=== PATIENT | male | born 1980 | race African-American/Black ===

== ENCOUNTER 2020-06-23 19:56 | Emergency (ER) | payer SELFPAY ==
[~2020-06-23] VITALS: Ht 172.7 cm; Wt 70.0 kg
[2020-06-23 20:00] VITALS: BP 117/83
[2020-06-23] MEDS ORDERED: TETANUS AND DIPHTHERIA TOX/PF 0.5 ML VIAL. VAX IM ONE (20:15)
--- NOTE | 2020-06-23 20:26 | PHYS DOC ---
Past History Past Medical History: Other (DANIS ESTRADA APRN) Past Surgical History: Other (DANIS ESTRADA APRN) Alcohol Use: Heavy Drug Use: Marijuana, Other (DANIS ESTRADA APRN) Adult General Chief Complaint Chief Complaint: LACERATION/AVULSION HPI HPI Patient is a 40-year-old male patient who presents to the ED today with right hand laceration, patient reports being cut by a sheet metal at work. Patient is right-handed. (DANIS ESTRADA APRN) Review of Systems Review of Systems Constitutional: Denies fever or chills [] Musculoskeletal: Denies back pain or joint pain [] Integument: reports right hand laceration Neurologic: Denies headache, focal weakness or sensory changes [] All other systems were reviewed and found to be within normal limits, except as documented in this note. (DANIS ESTRADA APRN) Current Medications Current Medications Current Medications Medications (Trade) Dose Ordered Sig/Tramaine Start Time Stop Time Status Last Admin Dose Admin Tetanus/ Diphtheria Toxoids Adsorbed (Tenivac Vial) 0.5 ml ONCE ONCE 06/23/20 20:15 06/23/20 20:16 DC (DANIS ESTRADA APRN) Allergies Allergies Allergies Coded Allergies Type Severity Reaction Last Updated Verified No Known Drug Allergies 04/02/14 No (DANIS ESTRADA APRN) Physical Exam Physical Exam Constitutional: Well developed, well nourished, no acute distress, non-toxic ap pearance. [] Skin: Warm, dry, right index finger lateral aspect of the knuckle with a superficial laceration approximately 2 cm long with no obvious tendon involvement. Full range of motion to the right fingers including flexion and e xtension at all the joints. Adequate radial, medial, ulnar sensation to the right hand. +2 right radial pulse. Cap refill less than 2 seconds the right fingers. Back: No tenderness, no CVA tenderness. [] Extremities: No tenderness, no cyanosis, no clubbing, ROM intact, no edema. [] Neurologic: Alert and oriented X 3, normal motor function, normal sensory function, no focal deficits noted. [] Psychologic: Affect normal, judgement normal, mood normal. [] (DANIS ESTRADA APRN) EKG EKG [] (DANIS ESTRADA APRN) Radiology/Procedures Radiology/Procedures [] (DANIS ESTRADA APRN) Heart Score Risk Factors: Risk Factors: DM, Current or recent (<one month) smoker, HTN, HLP, family history of CAD, obesity. Risk Scores: Risk Factors: DM, Current or recent (<one month) smoker, HTN, HLP, family history of CAD, obesity. (DANIS ESTRADA APRN) Course & Med Decision Making Course & Med Decision Making Pertinent Labs and Imaging studies reviewed. (See chart for details) This is a 40-year-old male patient with right hand laceration that was closed with Dermabond by me. Tetanus was given in the ED. Discharged home. Wound care instructions or return precautions provided. (DANIS ESTRADA APRN) Dragon Disclaimer Dragon Disclaimer This electronic medical record was generated, in whole or in part, using a voice recognition dictation system. (DANIS ESTRADA APRN) Departure Departure: Impression: Primary Impression: Laceration of right hand Additional Impression: Vaccine for tetanus toxoid Disposition: 01 DC HOME SELF CARE/HOMELESS Condition: STABLE Referrals: PCP,NO (PCP) Follow-up with your doctor as needed Patient Instructions: Laceration Care, Adult, [id number] Additional Instructions: You were evaluated in the emergency room for right hand laceration that was closed with Dermabond. Keep the area clean and dry. The Steri-Strips over the laceration site will fall off on their own. You received tetanus vaccine in the emergency room. Follow-up with your doctor in 1 to 2 weeks as needed. Monitor the area for signs of infection including but not limited to increased redness, warmth, yellow drainage from the area and return to the ED today. Dragon Disclaimer This chart was dictated in whole or in part using Voice Recognition software in a busy, high-work load, and often noisy Emergency Department environment. It may contain unintended and wholly unrecognized errors or omissions. (CIERA PARSON MD) Attending Signature Attending Signature I have participated in the care of this patient and I have reviewed and agree with all pertinent clinical information above including history, exam, and recommendations. (CIERA PARSON MD) Problem Qualifiers Primary Impression: Laceration of right hand Encounter type: initial encounter Foreign body presence: without foreign body Qualified Codes: S61.411A - Laceration without foreign body of right hand, initial encounter DANIS ESTRADA APRN Jun 23, 2020 20:26 CIERA PARSON MD Jun 25, 2020 19:32
[2020-06-23] MEDS ORDERED: DIPH,PERTUSS(ACELL),TET VAC/PF 0.5 ML SYRINGE. VAX IM ONE ×2 (20:44→20:45)
== END 2020-06-23 20:53 | disposition home or self-care (01) ==
LOC: ER 19:56
DX: S61.411A Laceration without foreign body of right hand, initial encounter (principal); W26.8XXA Contact with other sharp object(s), not elsewhere classified, initial encounter; Y93.89 Activity, other specified; Y92.89 Other specified places as the place of occurrence of the external cause; Y99.8 Other external cause status
CPT/HCPCS: 12001; 90471; 90715; 99283

== ENCOUNTER 2020-10-01 12:38 | Emergency (ER) | payer SELFPAY ==
[~2020-10-01] VITALS: Ht 172.7 cm; Wt 70.0 kg
[2020-10-01 12:47] VITALS: BP 114/80
[2020-10-01 13:33] LABS: BASO # 0.1 x10^3/uL (0.0-0.2); BASO % 1 % (0-3); EOS # 0.2 x10^3/uL (0.0-0.7); EOS % 3 % (0-3); HEMATOCRIT 46.7 % (39.0-53.0); HEMOGLOBIN 15.8 g/dL (13.0-17.5); LYMPH # 1.4 x10^3/uL (1.0-4.8); LYMPH % 18 % (24-48); MEAN CORPUSCULAR HEMOGLOBIN 31 pg (25-35); MEAN CORPUSCULAR HGB CONC 34 g/dL (31-37); MEAN CORPUSCULAR VOLUME 92 fL (79-100); MONO # 0.4 x10^3/uL (0.0-1.1); MONO % 5 % (0-9); NEUT # 5.6 x10^3uL (1.8-7.7); NEUT % 73 % (31-73); PLATELET COUNT 328 x10^3/uL (140-400); RED BLOOD COUNT 5.09 x10^6/uL (4.30-5.70); RED CELL DISTRIBUTION WIDTH 13.6 % (11.5-14.5); WHITE BLOOD COUNT 7.6 x10^3/uL (4.0-11.0)
[2020-10-01 13:36] LABS: CALCIUM 9.1 mg/dL (8.5-10.1); CREATININE 0.9 mg/dL (0.7-1.3); GFR 113.1; POTASSIUM 3.6 mmol/L (3.5-5.1)
--- NOTE | 2020-10-01 13:37 | PHYS DOC ---
Past History Past Medical History: Other Additional Past Medical Histor: heart murmur (TAVO MOURA APRN) Past Surgical History: Other Additional Past Surgical Histo: hernia repair (TAVO MOURA APRN) Alcohol Use: Heavy Drug Use: Marijuana, Other (TAVO MOURA APRN) Adult General Chief Complaint Chief Complaint: FOOT INJURY PAIN HPI HPI Patient is a 40-year-old male presents emergency department with complaints of athlete's foot fungus problems for years, patient states he has been using Silvadene ointment that seems to help however is not resolving the fungal infection on both of his feet and toes. Patient reports a 10/10 pain, states he took ibuprofen this morning for pain, also states he does not want to take anything else for pain. Patient states she would like to try a different medication than Silvadene ointment, patient states he has tried Lotrimin and miconazole in the past which has not helped. Patient denies any other physical complaints or physical concerns. Patient states he has a allergy to Bactrim. Patient states he does not take any other prescription medications. Patient denies any other health history. Patient denies headaches, rashes of his skin other than his athlete's foot, neck pain, shortness of breath, fever or chills, chest congestion, chest pain, or chest palpitations. Patient denies back pain, denies numbness or tingling to his extremities. Patient denies any increased urination or increased thirst. (TAVO MOURA APRN) Review of Systems Review of Systems 14 body systems of review of systems have been reviewed. See HPI for pertinent positives and negative responses, otherwise all other systems are negative, nonpertinent or noncontributory. (TAVO MOURA APRN) Allergies Allergies Patient reports an allergy to Bactrim DS. Allergies Coded Allergies Type Severity Reaction Last Updated Verified sulfamethoxazole Allergy Unknown 06/24/20 Yes trimethoprim Allergy Unknown 06/24/20 Yes (TAVO MOURA APRN) Physical Exam Physical Exam Constitutional: Well developed, well nourished, no acute distress, non-toxic appearance. 40-year-old male in no apparent distress. HENT: Normocephalic, atraumatic, bilateral external ears normal, nose normal. Eyes: PERRLA, EOMI, conjunctiva normal, no discharge. Cardiovascular: Distal cap refill less than 2 seconds Lungs & Thorax: No respiratory distress appreciated Skin: Warm, dry, no erythema, no rash. See extremity note. Extremities: No tenderness, no cyanosis, no clubbing, ROM intact, no edema. Whitish scales with fissuring, and maceration of interdigital areas of right foot toes 1 through 5 webs, and left toes 1 through 5 webs, no drainage appreciated, Coles lamp examination revealed bright coral color growth. Minimal chartreuse color growth. Satisfactory movement of all toes, cap refill of all toes less than 2 seconds. Nails of toes within normal limits. Neurologic: Alert and oriented X 3, normal motor function, normal sensory function, no focal deficits noted. [] Psychologic: Affect normal, judgement normal, mood normal. [] (TAVO MOURA APRN) Current Patient Data Vital Signs Vital Signs Date Time Temp Pulse Resp B/P (MAP) Pulse Ox O2 Delivery O2 Flow Rate FiO2 10/01/20 12:47 98.3 95 16 114/80 (91) 98 Room Air Lab Results Laboratory Tests Test 10/01/20 13:14 White Blood Count 7.6 x10^3/uL Red Blood Count 5.09 x10^6/uL Hemoglobin 15.8 g/dL Hematocrit 46.7 % Mean Corpuscular Volume 92 fL Mean Corpuscular Hemoglobin 31 pg Mean Corpuscular Hemoglobin Concent 34 g/dL Red Cell Distribution Width 13.6 % Platelet Count 328 x10^3/uL Neutrophils (%) (Auto) 73 % Lymphocytes (%) (Auto) 18 % Monocytes (%) (Auto) 5 % Eosinophils (%) (Auto) 3 % Basophils (%) (Auto) 1 % Neutrophils # (Auto) 5.6 x10^3uL Lymphocytes # (Auto) 1.4 x10^3/uL Monocytes # (Auto) 0.4 x10^3/uL Eosinophils # (Auto) 0.2 x10^3/uL Basophils # (Auto) 0.1 x10^3/uL Sodium Level 138 mmol/L Potassium Level 3.6 mmol/L Chloride Level 101 mmol/L Carbon Dioxide Level 29 mmol/L Anion Gap 8 Blood Urea Nitrogen 9 mg/dL Creatinine 0.9 mg/dL Estimated GFR (Cockcroft-Gault) 113.1 Glucose Level 142 mg/dL Calcium Level 9.1 mg/dL Total Bilirubin 0.4 mg/dL Direct Bilirubin 0.1 mg/dL Aspartate Amino Transf (AST/SGOT) 20 U/L Alanine Aminotransferase (ALT/SGPT) 22 U/L Alkaline Phosphatase 71 U/L Total Protein 8.2 g/dL Albumin 3.9 g/dL (TAVO MOURA APRN) EKG EKG [] (TAVO MOURA APRN) Radiology/Procedures Radiology/Procedures [] (TAVO MOURA APRN) Heart Score C/O Chest Pain: No Risk Factors: Risk Factors: DM, Current or recent (<one month) smoker, HTN, HLP, family history of CAD, obesity. Risk Scores: Risk Factors: DM, Current or recent (<one month) smoker, HTN, HLP, family history of CAD, obesity. (TAVO MOURA APRN) Course & Med Decision Making Course & Med Decision Making Pertinent Labs and Imaging studies reviewed. (See chart for details) 40-year-old male, vital signs reviewed, presents emergency department concerning fungal infection of toes for years. Physical examination concerning tinea pedis versus corynebacterium infection related to coral color illumination with Coles lamp. This is most likely a combination of both types of organisms. Patient states he has had success with Silvadene ointment in the past and no success with antifungal ointments. We will draw CBC, BMP, liver panel for consideration of oral terbinafine regimen. Serum labs within normal limits, no evident liver disease per laboratory studies. Patient states he has no history of liver disease in the family, no history of diabetes in the family. Discussed with patient strict follow-up with podiatry, will give area security screener information for follow-up. Will prescribe Silvadene ointment to use until patient can secure appointment next week as Silvadene ointment has corynebacterium coverage. Will withhold antifungal treatment, will allow podiatry specialty to determine ongoing regimen for fungal type foot infection. Will give patient lab results on discharge instructions to bring to podiatry appointment. Discussed discharge planning and follow-up with patient. Patient gave verbal understanding of strict follow-up with podiatry within a week. Sulfa Silvadene use until examined by podiatry and will follow their instructions. Return to ER precautions and concerns. Patient discharged home without incident. (TAVO MOURA APRN) Course & Med Decision Making I oversaw on the above date of service of this patient and discussed the care with the HEAVY RAIL TRAIN OPERATOR. This is a nonemergent process that does not require further diagnostic work-up in ER, podiatry referral advised. Commended against HEAVY RAIL TRAIN OPERATOR starting medication that would require close outpatient monitoring while in ER setting for nonemergent process. Otherwise, I agree with the findings, plan of care, and disposition as documented. Electronically signed, Maricarmen Gallo DO (MARICARMEN GALLO DO) Eladio Disclaimer Dragmodesta Disclaimer This electronic medical record was generated, in whole or in part, using a voice recognition dictation system. (TAVO MOURA APRN) Departure Departure: Impression: Primary Impression: Infection, fungal, left foot Additional Impression: Infection, fungal, right foot Disposition: 01 DC HOME SELF CARE/HOMELESS Condition: GOOD Referrals: PCP,NO (PCP) Additional Instructions: I have given you a prescription of Silvadene ointment, use as directed until directed otherwise by podiatry specialty. We have discussed a need to follow-up with podiatry as this infectious process may be bacteria related, I have given you 3 podiatrists close to this facility to follow-up with. I encourage you to make an appointment today or Sunday to be seen sometime within a week. Please follow the security screener recommendations. Return to the emergency department for worsening symptoms or other concerns. Please continue to use ibuprofen for pain and discomfort. I have attached your laboratory results to bring with you for your podiatry appointment. [facility] [address] Closed ? Opens 8:30AM Wed Leoncio Vivar DPM [address] [facility] CHERI Sneed Lab results: Test 10/01/20 13:14 White Blood Count 7.6 x10^3/uL Red Blood Count 5.09 x10^6/uL Hemoglobin 15.8 g/dL Hematocrit 46.7 % Mean Corpuscular Volume 92 fL Mean Corpuscular Hemoglobin 31 pg Mean Corpuscular Hemoglobin Concent 34 g/dL Red Cell Distribution Width 13.6 % Platelet Count 328 x10^3/uL Neutrophils (%) (Auto) 73 % Lymphocytes (%) (Auto) 18 % Monocytes (%) (Auto) 5 % Eosinophils (%) (Auto) 3 % Basophils (%) (Auto) 1 % Neutrophils # (Auto) 5.6 x10^3uL Lymphocytes # (Auto) 1.4 x10^3/uL Monocytes # (Auto) 0.4 x10^3/uL Eosinophils # (Auto) 0.2 x10^3/uL Basophils # (Auto) 0.1 x10^3/uL Sodium Level 138 mmol/L Potassium Level 3.6 mmol/L Chloride Level 101 mmol/L Carbon Dioxide Level 29 mmol/L Anion Gap 8 Blood Urea Nitrogen 9 mg/dL Creatinine 0.9 mg/dL Estimated GFR (Cockcroft-Gault) 113.1 Glucose Level 142 mg/dL Calcium Level 9.1 mg/dL Total Bilirubin 0.4 mg/dL Direct Bilirubin 0.1 mg/dL Aspartate Amino Transf (AST/SGOT) 20 U/L Alanine Aminotransferase (ALT/SGPT) 22 U/L Alkaline Phosphatase 71 U/L Total Protein 8.2 g/dL Albumin 3.9 g/dL EMERGENCY DEPARTMENT GENERAL DISCHARGE INSTRUCTIONS Thank you for coming to [facility] (ED) today and trusting us with you care. We trust that you had a positivie experience in our Emergency Department. If you wish to speak to the department management, you may call the director at . YOUR FOLLOW UP INSTRUCTIONS ARE FOLLOWS: 1. Do you have a private Doctor? If you do not have a private doctor, please ask for a resource list of physicians or clinics that may be able to assist you with follow up care. 2. The Emergency Physician has interpreted your x-rays. The X-Ray specialist will also review them. If there is a change in the findings, you will be notified in 48 hours when at all possible. 3. A lab test or culture has been done, your results will be reviewed and you will be notified if you need a change in treatment. ADDITIONAL INSTRUCTIONS AND INFORMATION: 1. Your care today has been supervised by a physician who is specially trained in emergency care. Many problems require more than one evaluation for a complete diagnosis and treatment. We recommend that you schedule your follow up appointment as recommended to ensure complete treatment of you illness or injury. If you are unable to obtain follow up care and continue to have a problem, or if your condition worsens, we recommend that you return to the ED. 2. We are not able to safely determine your condition over the phone nor are we able to give sound medical advice over the phone. For these safety reasons, if you call for medical advice we will ask you to come to the ED for further evaluation. 3. If you have any questions regarding these discharge instructions please call the ED at [phone]. SAFETY INFORMATION: In the interest of safety, wellness, and injury prevention; we encourage you to wear your sealbelt, if you smoke; quite smoking, and we encourage family to use a protective helmet for bicycling and other sporting events that present an increased risk for head injury. IF YOUR SYMPTOMS WORSEN OR NEW SYMPTOMS DEVELOP, OR YOU HAVE CONCERNS ABOUT YOUR CONDITION; OR IF YOUR CONDITION WORSENS WHILE YOU ARE WAITING FOR YOUR FOLLOW UP APPOINTMENT; EITHER CONTACT YOUR PRIMARY CARE DOCTOR, THE PHYSICIAN WHOSE NAME AND NUMBER YOU WERE GIVEN, OR RETURN TO THE ED IMMEDIATELY. Scripts Silver Sulfadiazine (SILVADENE) 20 Gm Cream..g. 1 TAMARA TP DAILY for TOE INFECTION for 7 Days, #50 GM 0 Refills apply to affected area(s) Prov: TAVO MOURA APRN 10/01/20 Problem Qualifiers TAVO MOURA APRN Oct 01, 2020 13:37 MARICARMEN GALLO DO Oct 02, 2020 06:24
[2020-10-01 13:42] LABS: ALBUMIN 3.9 g/dL (3.4-5.0); DIRECT BILIRUBIN 0.1 mg/dL (0.0-0.2); TOTAL BILIRUBIN 0.4 mg/dL (0.2-1.0); TOTAL PROTEIN 8.2 g/dL (6.4-8.2)
[2020-10-01] MEDS ORDERED: SILV20CR14 TP (14:23)
== END 2020-10-01 14:30 | disposition home or self-care (01) ==
LOC: ER 12:38
DX: B35.3 Tinea pedis (principal); F10.20 Alcohol dependence, uncomplicated; Z88.1 Allergy status to other antibiotic agents; Z88.2 Allergy status to sulfonamides; Y90.9 Presence of alcohol in blood, level not specified
CPT/HCPCS: 36415; 80048; 80076; 85025; 99283

== ENCOUNTER 2021-08-10 13:00 | Emergency (ER) | payer SELFPAY ==
[~2021-08-10] VITALS: Ht 172.7 cm; Wt 70.0 kg
[~2021-08-10 13:00] MED LIST: SILV20CR14 TP
[2021-08-10 13:22] VITALS: BP 131/67
--- NOTE | 2021-08-10 14:27 | PHYS DOC ---
Past History Past Medical History: Other Additional Past Medical Histor: heart murmur, LEAKING HEART VALVE Past Surgical History: Other Additional Past Surgical Histo: hernia repair Alcohol Use: None Drug Use: Marijuana, Other Adult General Chief Complaint Chief Complaint: CHEST WALL PAIN HPI HPI Patient is a 41-year-old male presenting for chest pain. Reports he has distant history of heart abnormalities and had extensive outpatient work-up as a child after passing out with exertion. States he had echocardiogram among other testing that found a heart murmur and subsequent leaking valves but reports he has been followed up in outpatient setting for this with no surgical intervention necessary. States he recently contracted COVID-19 despite being vaccinated and had typical URI symptoms, admits that he actually feels the best that he has in over a week today. Nonetheless, substernal chest pain that exacerbates with cough in big breaths in prompted him to come in for evaluation. Review of Systems Review of Systems Fourteen body systems of review of systems have been reviewed. See HPI for pertinent positives and negative responses, other menard all other systems are negative, non-pertinent or non-contributory Allergies Allergies Allergies Coded Allergies Type Severity Reaction Last Updated Verified sulfamethoxazole Allergy Unknown 06/24/20 Yes trimethoprim Allergy Unknown 06/24/20 Yes Physical Exam Physical Exam Constitutional: Well developed, well nourished, no acute distress, non-toxic appearance. HENT: Normocephalic, atraumatic, bilateral external ears normal, oropharynx moist, no oral exudates, nose normal. Eyes: PERRLA, EOMI, conjunctiva normal, no discharge. Neck: Normal range of motion, no tenderness, supple, no stridor. Cardiovascular: Heart rate regular, sinus rhythm, no murmurs rubs or gallops Lungs & Thorax: Bilateral breath sounds clear to auscultation Abdomen: Bowel sounds normal, soft, no tenderness, no masses, no pulsatile masses. Nonsurgical abdomen, no peritoneal signs Skin: Warm, dry, no erythema, no rash. Back: No tenderness, no CVA tenderness. Extremities: No tenderness, no cyanosis, no clubbing, ROM intact, no edema. Neurologic: Alert and oriented X 3, grossly normal motor & sensory function, no focal deficits noted. Psychologic: Affect normal, judgement normal, mood normal. Current Patient Data Vital Signs Vital Signs Date Time Temp Pulse Resp B/P (MAP) Pulse Ox O2 Delivery O2 Flow Rate FiO2 08/10/21 13:22 98.2 72 18 131/67 (88) 98 Room Air EKG EKG EKG ordered and interpreted by myself at 1330 hrs. is sinus rhythm at 70 bpm, unremarkable intervals, no axis deviation, no obvious ischemic findings, no STEMI Radiology/Procedures Radiology/Procedures [] Heart Score C/O Chest Pain: Yes HEART Score for Chest Pain: HEART Score for Chest Pain Response (Comments) Value History Slighlty/Non-Suspicious 0 ECG Normal 0 Age < 45 0 Risk Factors No Risk Factors 0 Total 0 Risk Factors: Risk Factors: DM, Current or recent (<one month) smoker, HTN, HLP, family history of CAD, obesity. Risk Scores: Risk Factors: DM, Current or recent (<one month) smoker, HTN, HLP, family history of CAD, obesity. Course & Med Decision Making Course & Med Decision Making ABCs unremarkable HPI physical exam and EKG nonconcerning for any emergent or surgical issues Besides distant history of extensive cardiac work-up as a child, patient has no other modifiable and/or acquired risk factors for cardiac disease such as illicit drug use, tobacco abuse, early cardiac disease in family etc. I discussed little indication for further work-up in an otherwise well-appearing hemodynamically stable patient he feels better status post COVID infection, patient agreed. Continued supportive care practices and close primary care follow-up in outpatient setting advised Patient aware this might be an acute presentation more concerning pathology and understood return precautions. He was given numerous resources on local area for physicians he can follow-up with Dragmodesta Disclaimer Eladio Disclaimer This electronic medical record was generated, in whole or in part, using a voice recognition dictation system. Departure Departure: Impression: Primary Impression: Atypical chest pain Additional Impression: COVID-19 Disposition: HOME / SELF CARE / HOMELESS Condition: STABLE Referrals: PCP,NO (PCP) Additional Instructions: You were seen for chest pain. Your workup did not show any acute abnormalities today, but does not indicate that you do not have underlying cardiovascular disease. You do need to follow up with your primary doctor and potentially a supervisor drying and softening for further evaluation and treatment. You would benefit from outpatient echocardiogram and so, this should be discussed with your primary care physician. You were given a list of local providers whom you should contact and see you within the week for evaluation. You should return to the ED if you develop worsening chest pain, shortness of breath, fever, abnormal sweating, leg swelling, or any other new or concerning symptoms. Problem Qualifiers MARICARMEN GALLO DO Aug 10, 2021 14:27
--- NOTE | 2021-08-10 15:04 | EKG ---
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
== END 2021-08-10 14:52 | disposition home or self-care (01) ==
LOC: ER 13:00
DX: U07.1 COVID-19 (principal); R07.2 Precordial pain; Z88.2 Allergy status to sulfonamides; Z88.1 Allergy status to other antibiotic agents
CPT/HCPCS: 93005; 99283